=== PATIENT | male | born 1990 | race Caucasian/White ===

== ENCOUNTER 2021-04-27 08:32 | Emergency (ER) | payer BC ==
[~2021-04-27] VITALS: Ht 180.3 cm; Wt 114.9 kg
[~2021-04-27 08:32] MED LIST: ANAPROX DS550 MG PO; FLEXERIL10 MG PO; IBUPROFEN800 MG PO; PROVENTIL HFA6.7 GM INH; ULTRAM50 MG PO
--- OUTSIDE RECORDS SUMMARY | 2021-04-27 08:40 | XMS ---
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 Care Guidelines exist for the following facilities: [facility] ( 10/26/2019 ) [facility]12 MO[facility] NOTE: Visits indicate total known visits. ED/UCC VISIT TRACKING (12 MO.) 04/27/2021 08:33 [facility] [place] TYPE: Emergency COMPLAINT: - DIABETIC ISSUE INPATIENT VISIT TRACKING (12 MO.) No inpatient visits to display in this time frame [email or web address]
[2021-04-27] MEDS ORDERED: FREESTYLE LANC1 EACH MISC (08:54)
--- NOTE | 2021-04-27 09:51 | NUR ---
ENA MOREL, CALLED TO SEE IF THE TICK ERADICATOR WAS HERE TODAY. SHE IS NOT HERE TODAY. MR. CHRISTIANSEN IS A NEWLY DIAGNOSED DIABETIC WITH AN A1C OF 13%. I WAS ASKED IF I COULD PROVIDE ANY DIET/NUTRITION INFO FOR HIM WHILE IN THE ER. I PROVIDED PATIENT WITH A HANDOUT FROM THE NUTRITION CARE MANUAL TITLED "CARB COUNTING FOR DIABETES." I EXPLAINED WHICH FOODS CONTAIN CARBS AND REMINDED HIM THAT HE NEEDS SOME CARBS FOR OVERALL GOOD HEALTH, BUT TO CHOOSE WHOLESOME CARBS SUCH WHOLE GRAINS, SMALL WHOLE FRUITS, MILK AND LOW-SUGAR YOGURT. HIS BIGGEST CHANGE WILL BE PORTION SIZES. I ALSO PROVIDED HIM A LIST OF NON-STARCHY VEGGIES AND LOW CARB SNACKS. I BRIEFLY EXPLAINED HOW TO TREAT LOW BLOOD SUGAR. I ALSO TOLD HIM TO BE CAREFUL OF DOING A TRUE KETO DIET IF HE IS TAKING INSULIN. HE APPRECIATED MY TIME. MY NAME AND OFFICE # IS ON THE HANDOUTS AND I GAVE HIM THE CARD FOR ABHISHEK, THE TICK ERADICATOR. HIS PCP WILL LIKELY REFER HIM TO OUTPATIENT DIABETES EDUCATION HERE.
[2021-04-27] MEDS ORDERED: METFORMIN HCL500 MG PO (13:10)
== END 2021-04-27 13:32 | disposition home or self-care (01) ==
LOC: ED 08:32
DX: E11.9 Type 2 diabetes mellitus without complications (principal); I10 Essential (primary) hypertension; G47.30 Sleep apnea, unspecified; M41.9 Scoliosis, unspecified; F90.9 Attention-deficit hyperactivity disorder, unspecified type
CPT/HCPCS: 80053; 81001; 82010; 82803; 85025; 99284; J7030